=== PATIENT | male | born 1985 | race Two or more races ===

== ENCOUNTER 2021-09-28 09:52 | Outpatient (CLI) | payer OTHER | END 2021-09-28 10:07 | disposition home or self-care (01) | LOC: SONOGRAMA 09:52 | PROVIDERS: ATTEND Surgery | DX: C73 Malignant neoplasm of thyroid gland (principal) ==

== ENCOUNTER 2021-10-24 15:51 | Emergency (ER) | payer OTHER ==
[~2021-10-24] VITALS: Ht 180.3 cm; Wt 86.2 kg
[2021-10-24] MEDS ORDERED: SYNTHROID175 MCG PO (16:07)
== END 2021-10-24 19:05 | disposition home or self-care (01) ==
LOC: ER 15:51
DX: U07.1 COVID-19 (principal); E05.90 Thyrotoxicosis, unspecified without thyrotoxic crisis or storm; Z85.850 Personal history of malignant neoplasm of thyroid

== ENCOUNTER 2023-07-21 14:36 | Emergency (ER) | payer OTHER ==
[~2023-07-21] VITALS: Ht 180.3 cm; Wt 93.0 kg
[~2023-07-21 14:36] MED LIST: SYNTHROID175 MCG PO
[2023-07-21 18:24] LABS: HEMATOCRIT 40.6 % (39.0-48.0); HEMOGLOBIN 14.3 g/dL (13-16.00); MEAN CELL VOLUME 87.2 fL (80.0-100.00); MEAN CORPUSCULAR HEMOGLOBIN 30.8 pg (27.00-32.0); MEAN CORPUSCULAR HGB CONC 35.3 g/dl (32.0-36.0); PLATELET COUNT 322 K/uL (150-450); RED BLOOD COUNT 4.65 M/uL (4.00-6.00); RED CELL DISTRIBUTION WIDTH 12.9 % (11.5-14.5)
[2023-07-21 19:34] LABS: CALCIUM 9.6 mg/dL (8.5-10.1); CREATININE SERUM 0.92 mg/dL (0.70-1.30); GFR 93.62; POTASSIUM 4.14 mEq/L (3.5-5.1)
[2023-07-21 19:35] LABS: TSH 0.053 uIU/mL (0.358-3.74)
== END 2023-07-21 20:24 | disposition home or self-care (01) ==
LOC: ER 14:37
PROVIDERS: General Practice
DX: R07.9 Chest pain, unspecified (principal); T38.1X1A Poisoning by thyroid hormones and substitutes, accidental (unintentional), initial encounter; E03.8 Other specified hypothyroidism